=== PATIENT | female | born 1995 | race Two or more races ===

== ENCOUNTER 2024-02-18 22:02 | Emergency (ER) | payer MEDICAID ==
[~2024-02-18] VITALS: Ht 157.5 cm; Wt 55.8 kg
[2024-02-18 22:10] VITALS: BP 116/58; PULSE 82; RESP 17; O2SAT 99
[2024-02-18] MEDS: ondansetron/PF 4mg/2ml inj IV ONE (23:03)
[2024-02-18] MEDS: diphenhydrAMINE 50 mg/ml inj IV ONE (23:04)
[2024-02-18] MEDS: famotidine/PF 10 mg/ml inj IV ONE (23:04)
[2024-02-18] MEDS: dexamethasone sod phosphate 10mg/ml inj IV STA (23:04)
[2024-02-18] MEDS ORDERED: HYDR-3686 PO (23:40)
[2024-02-18] MEDS ORDERED: PRED50TA PO (23:40)
[2024-02-18] MEDS ORDERED: EPIN0.3P3 IM (23:40)
[2024-02-18 23:56] VITALS: TEMP 98.2
== END 2024-02-19 00:05 | disposition home or self-care (01) ==
LOC: ER 22:03
DX: T78.1XXA Other adverse food reactions, not elsewhere classified, initial encounter (principal); Z91.013 Allergy to seafood; Z79.52 Long term (current) use of systemic steroids; Z79.899 Other long term (current) drug therapy; X58.XXXA Exposure to other specified factors, initial encounter
CPT/HCPCS: 96374; 96375; 99284; J1100; J1200; J2405; J3490